=== PATIENT | male | born 1960 | race Caucasian/White ===

== ENCOUNTER 2020-03-01 10:30 | Outpatient (CLI) | payer OTHER, SELFPAY ==
--- NOTE | ~2020-03-01 | NM_ITS ---
EXAMINATION: NM hepatobiliary wo pharm DATE: 03/01/2020 13:58 INDICATION: Abdominal pain. COMPARISON: Ultrasound 03/13/2016 TECHNIQUE: 5.5 mCi Tc-99m mebrofenin (Choletec) was administered intravenously. Scintigraphic images of the abdomen were obtained for one hour. Then, 1.5 mcg sincalide (Kinevac) IV was administered, an d imaging was continued for 30 minutes. FINDINGS: There is normal clearance of radiotracer from the blood pool. There is homogeneous tracer u ptake by the liver. Activity progresses to the bowel and gallbladder. Gallbladder ejection fraction (GBEF) was 85%. Note that most patients with gallbladder dysfunction have GBEF < 35%, which overlaps with the broad normal range of 10-90%. IMPRESSION: 1. Normal hepatobiliary scintigraphy. Reviewed, dictated and finalized at location A.
== END 2020-03-01 10:31 | disposition home or self-care (01) ==
PROVIDERS: PCP Emergency Medicine; Visit Provider Emergency Medicine
DX: R10.9 Unspecified abdominal pain (principal)
CPT/HCPCS: 78226; A9537

== ENCOUNTER 2021-04-30 12:11 | Outpatient (CLI) | payer OTHER, SELFPAY ==
--- NOTE | ~2021-04-30 | MR_ITS ---
EXAMINATION: MR brain/brain stem wo/w con DATE: 04/30/2021 13:13 INDICATION: Muscle wasting and atrophy, not elsewhere classified. Bilateral leg weakness. TECHNIQUE: Magnetic resonance imaging (MRI) of the brain and brainstem was performed without and with 15 mL MultiHance intravenous contrast. Sequences included sagittal and axial T1-weighted FSE, axial diffusion-weighted FS EPI, axial T2*-weighted GRE, axial T2-weighted FLAIR Propeller, and axial T2-we ighted Propeller. Postcontrast sequences included axial and coronal T1-weighted FSE. Apparent diffusi on coefficient (ADC) maps were created. COMPARISON: None. FINDINGS: There are scattered areas of nonspecific increased T2-weighted signal intensity in the cere bral white matter and doug. There is no intracranial hemorrhage, acute infarction, or abnormal intrac ranial mass lesion. The ventricles are normal in size. The orbits are normal. There is mild mucosal t hickening in the paranasal sinuses. The mastoid air cells are normal. IMPRESSION: 1. Mild nonspecific cerebral white matter disease and pontine disease, which likely represents chroni c small vessel ischemic disease. Reviewed, dictated and finalized at location A. IMPRESSION: 1. Mild nonspecific cerebral white matter disease and pontine disease, which demi reyna represents chronic small vessel ischemic disease.
[2021-04-30 12:48] LABS: Estimated Glomerular Filt Rate > 60
== END 2021-04-30 12:12 ==
PROVIDERS: PCP Emergency Medicine; Visit Provider Emergency Medicine
DX: R90.82 White matter disease, unspecified (principal); M62.50 Muscle wasting and atrophy, not elsewhere classified, unspecified site; G93.89 Other specified disorders of brain
CPT/HCPCS: 70553; A9577

== ENCOUNTER → 2021-10-20 10:06 | Outpatient (CLI) | payer OTHER, SELFPAY ==
--- NOTE | ~2021-10-20 | MR_ITS ---
EXAMINATION: MR cervical spine wo con DATE: 10/20/2021 11:06 INDICATION: Gait abnormality. Left arm weakness. TECHNIQUE: Magnetic resonance imaging (MRI) of the cervical spine was performed without intravenous c ontrast. Sequences included sagittal T2-weighted FSE, sagittal STIR FSE, sagittal T1-weighted FSE, ax ial MERGE, and axial T2-weighted FSE. COMPARISON: None FINDINGS: Bone alignment is normal. Vertebral body heights are normal. There is mildly decreased disc height at C4-C5 and C5-C6. The spinal cord signal intensity is normal. The following disc levels are specifically discussed: C2-C3: The disc does not extend beyond the endplate margin. There is no uncovertebral joint osteoarth ritis. There is mild bilateral facet joint osteoarthritis. There is no neural foraminal stenosis. The re is no central canal stenosis. C3-C4: The disc is bulging. There is moderate bilateral uncovertebral joint osteoarthritis. There is severe right and moderate left facet joint osteoarthritis. There is moderate right and mild left neur al foraminal stenosis. There is mild central canal stenosis. C4-C5: The disc is bulging. There is moderate right and severe left uncovertebral joint osteoarthriti s. There is severe bilateral facet joint osteoarthritis. There is moderate bilateral neural foraminal stenosis. There is mild central canal stenosis. C5-C6: The disc is bulging. There is severe right and moderate left uncovertebral joint osteoarthriti s. There is severe bilateral facet joint osteoarthritis. There is mild bilateral neural foraminal leobardo nosis. There is mild central canal stenosis. C6-C7: The disc is bulging. There is mild bilateral uncovertebral joint osteoarthritis. There is greta re bilateral facet joint osteoarthritis. There is mild bilateral neural foraminal stenosis. There is mild central canal stenosis. C7-T1: The disc does not extend beyond the endplate margin. There is no uncovertebral joint osteoarth ritis. There is moderate bilateral facet joint osteoarthritis. There is mild left neural foraminal st enosis. There is no central canal stenosis. IMPRESSION: 1. Moderate cervical spondylosis. Reviewed, dictated and finalized at location A. IZATION MANAGEMENT UM NURSE
== END ==
DX: M62.50 Muscle wasting and atrophy, not elsewhere classified, unspecified site (principal); M47.892 Other spondylosis, cervical region
CPT/HCPCS: 72141

== ENCOUNTER → 2022-10-07 13:00 | Outpatient (CLI) | payer OTHER, SELFPAY ==
--- NOTE | ~2022-10-07 | MR_ITS ---
EXAMINATION: MR brain/brain stem wo/w con DATE: 10/07/2022 13:41 INDICATION: Parkinsonism. Unsteady gait. Positive ZOHAIB interbody. TECHNIQUE: Magnetic resonance imaging (MRI) of the brain and brainstem was performed without and with 15 mL MultiHance intravenous contrast. COMPARISON: Brain MRI 04/30/2021 FINDINGS: There are scattered areas of nonspecific increased T2-weighted signal intensity in the cere bral white matter and doug. There is no intracranial hemorrhage, acute infarction, or abnormal intrac ranial mass lesion. The ventricles are normal in size. There is mild mucosal thickening in the parana yevgeniy sinuses. The orbits are normal. The mastoid air cells are normal. IMPRESSION: 1. Mild nonspecific cerebral white matter disease and pontine disease, which likely represents chroni c small vessel ischemic disease, worsened from 04/30/2021. Reviewed, dictated and finalized at location A. RACTING EXECUTIVE IMPRESSION: 1. Mild nonspecific cerebral white matter disease and pontine disease, which demi reyna represents chronic small vessel ischemic disease, worsened from 04/30/2021.
== END ==
PROVIDERS: PCP Emergency Medicine
DX: G98.8 Other disorders of nervous system (principal); C80.1 Malignant (primary) neoplasm, unspecified; R93.0 Abnormal findings on diagnostic imaging of skull and head, not elsewhere classified
CPT/HCPCS: 70553; A9577

== ENCOUNTER → 2022-10-14 13:48 | Outpatient (CLI) | payer OTHER, SELFPAY ==
--- NOTE | ~2022-10-14 | CT_ITS ---
Clinical Indication: Paraneoplastic neurologic disorder CT Scan of the Chest, Abdomen, and Pelvis with Contrast: Technique: Contiguous sections were acquired throughout the chest, abdomen, and pelvis after intraven ous administration of 100 cc of Omnipaque 350. Dose reduction technique was used on this scan by kay suh automated exposure control and iterative reconstruction technique. The dose-length product (DL P) was 880.90 mGy-cm. Findings: There is no evidence of any significant mediastinal, hilar or axillary lymphadenopathy. The mediastin al soft tissues and vascular structures appear normal. There is no evidence of pleural or pericardial effusion. There is a fissural nodule along the right major fissure (axial image 63). Lungs are otherwise clear. Probable 9 mm hemangioma in the inferior right hepatic lobe. The spleen, pancreas, gallbladder, adren als and kidneys are within normal limits. No evidence of aortic aneurysm. No lymphadenopathy. No bowel obstruction or bowel wall thickening. There is sigmoid diverticulosis. No abscess or free ai r. Urinary bladder is unremarkable. Prostate gland and seminal vesicles are unremarkable. Impression: No significant abnormalities seen. Reviewed, dictated and finalized at [facility]. RU[employer] SERVICES LIBRARIAN Impression: No significant abnormalities seen.
== END ==
PROVIDERS: PCP Emergency Medicine
DX: G98.8 Other disorders of nervous system (principal); C80.1 Malignant (primary) neoplasm, unspecified
CPT/HCPCS: 71260; 74177; Q9967

== ENCOUNTER 2023-06-24 07:51 | Outpatient (CLI) | payer OTHER, SELFPAY ==
--- NOTE | ~2023-06-24 | PE_ITS ---
EXAMINATION: PET skull to mid thigh DATE: 06/24/2023 09:57 INDICATION: Weight loss TECHNIQUE: Blood glucose level was 102 mg/dL. 9.332 mCi of 18-fluorodeoxyglucose (18-FDG) was adminis tered i.v. Low dose computed tomography (CT) images were acquired from the base of the brain to the p roximal thighs for attenuation correction and anatomic localization. Positron emission tomography (PE T) images were acquired in the same distribution beginning 59 minutes after injection. Images includi ng fused PET/CT images were reconstructed in axial, coronal, and sagittal planes. Automated exposure control technique was employed. The dose-length product was 676.62mGy-cm. COMPARISON: CT dated 10/14/2022 FINDINGS: Head/neck: There is symmetric increased activity in the oral cavity, temporalis muscles, laryngeal muscles and o cular muscles without CT correlate, likely physiologic. No pathologically enlarged cervical lymphaden opathy or suspicious foci of increased FDG uptake in the visualized head or neck. Atherosclerotic jarrell cification is at the bilateral carotid bulbs. Chest: No significant interval change in a 7 x 3 mm flat lenticular intrafissural lymph node along the right major fissure without evident FDG activity. No suspicious pulmonary nodules, pneumonia, pulmonary ed raciel or pleural effusion. Heart size is normal. Aortic valve calcific is. Thoracic aorta is normal in caliber. No pathologically enlarged or FDG avid thoracic lymphadenopathy. Abdomen/pelvis/proximal thighs: Physiologic renal accumulation and excretion of FDG activity in the kidneys, bladder and along portio ns of ureters. Normal degree and heterogenous pattern of increased uptake throughout the liver withou t radiologic correlate or dominant FDG avid lesion. The gallbladder, pancreas, spleen and bilateral a drenal glands are normal. Mild uptake scattered throughout the bowels without radiologic correlate, a lso likely physiologic. Normal appendix. There is increased FDG uptake with maximal SUV of 11.6 The tip of the greater trochanter deep to the insertion of the gluteus medius and minimus tendons and a second region of increased uptake with maximal severe 9.71 distally overlying the lateral margin o f the greater trochanter without definitive radiologic correlate likely related to diffuse medius/min imus bursitis and trochanteric bursitis respectively. No other abnormal foci of increased FDG uptake or pathologically enlarged lymphadenopathy in the abdomen, pelvis or proximal thighs. Musculoskeletal: There are mild scattered degenerative skeletal changes. No suspicious lytic, blastic or PSMA avid bon e lesions. IMPRESSION: 1. Regions of increased uptake without suspicious radiologic correlate along the right greater trocha nter with location typical for gluteus medius/minimus bursitis and trochanteric bursitis. 2. Otherwise unremarkable study with no other FDG avid lesions or pathologically enlarged lymphadenop athy suspicious for primary malignancy or metastatic disease. Reviewed, dictated and finalized at location A. IMPRESSION: 1. Regions of increased uptake without suspicious radiologic correlate along th e right greater trochanter with location typical for gluteus medius/minimus bur sitis and trochanteric bursitis. 2. Otherwise unremarkable study with no other FDG avid lesions or pathologicall y enlarged lymphadenopathy suspicious for primary malignancy or metastatic dise ase.
[2023-06-24 08:16] LABS: Glucose Point of Care 102 mg/dl (65-105)
== END 2023-06-24 07:52 | disposition home or self-care (01) ==
PROVIDERS: PCP Emergency Medicine
DX: R63.4 Abnormal weight loss (principal)
CPT/HCPCS: 78815; A9552

== ENCOUNTER 2025-04-25 08:45 | Outpatient (CLI) | payer OTHER, SELFPAY ==
--- OUTSIDE RECORDS SUMMARY | 2020-07-01 05:52 | XMS_ITS | Continuity of Care Document ---
Author Organization [facility] Address [address] [place] [address] Phone Care Team Providers Care Combat Control Name Role Phone Araceli Caro MD Unavailable Unavailable Allergies, Adverse Reactions, Alerts Substance Reaction Status Criticality penicillin G Skin Active No Information Medications Medication Instructions Dosage Effective Dates (start - stop) Status Comments Valium 5 mg tablet take 1 tablet (5MG) by oral route 2 times every day as needed for anxiety - Active needs appt paroxetine 40 mg tablet TAKE ONE DAILY - Active Advance Directives Directive Yes / No Effective Date File Name No Information Encounters Encounter Description Practice Location Reason(s) For Visit Diagnoses Date Provider Providers Copied on Encounter [facility], [address], [place], [place], [address] , tel: [phone] [facility] No Information 9-202 0 Caro Araceli. [address] [address], [place], [place], [address], [place]. tel:[phone] [facility], [address], [place], [place], [address] , tel: [phone] [facility] No Information 5-201 9 Caro Araceli. [address] [address], [place], [place], [address], [place]. tel:[phone] [facility], [address], [place], [place], [address] , tel: [phone] [facility] No Information 9 Vania Jacobsal. [address] [place] [address], [address] [address], [place], [place], [address], [place]. tel:[phone] [email or web address], [address], [place], [place], [address] , tel: [phone] [facility] rov (chief complaint) Recurrent major depressive disorder, remission status unspecifiedBody mass index (BMI) 22.0-22.9, adultAbnormal weight loss 9 Caro Araceli. [address] [place] [address], [address] [address], [place], [place], [address], [place]. tel:[phone] Referring Provider: Araceli Caro, [address] [place] [address], [place], [address] . tel:[phone] [facility], [address], [place], [place], [address] , tel: [phone] [facility] Recurrent major depressive disorder, remission status unspecifiedAnxie ty state, unspecifiedBody mass index (BMI) 25.0-25.9, adult 8 Vania Jacobsal. [address] [place] [address], [address] [address], [place], [place], [address], [place]. tel:[phone] Referring Provider: Araceli Caro, [facility] [address] [address], [place], [address] . tel:[phone] [email or web address], [address], [place], [place], [address] , tel:[phone] [facility] Diarrhea, unspecifiedAnxie ty disorder, unspecifiedMajor depressive disorder, single episode, unspecified Caro Araceli. [address] [place], [place] [address], [address] [address], [place], [place], [address], [place]. tel:[phone] Referring Provider: Araceli Caro, [facility] [address] [address], [place], [address] . tel:[phone] [facility], [address], [place], [place], [address] , [place] tel: [phone] [facility] Diarrhea due to malabsorptionDia rrhea, unspecified 6 Sheree Jatinder. [address] [facility] [address], [place], [place], [address], [place]. tel:[phone] [facility], [address], [place], [place], [address] , [place] tel: [phone] [facility] Diarrhea due to malabsorptionDia rrhea, unspecified 6 Sheree Jatinder. [address] [facility], [place], [place], [address], [place]. tel:[phone] Referring Provider: Araceli Caro, [address] [place] [address], [place], [address] . tel:[phone] [facility], [address], [place], [place], [address] , [place] tel: [phone] [facility] SteatorrheaEncou nter for general adult medical examination without abnormal findingsAnxiety disorder, unspecified 6 Vania Charles. [address] [place] [address], [place], [place], [address], [place]. tel:[phone] Referring Provider: Araceli Caro, [address] [place] [address], [place], [address] . tel:[phone] [facility], [address], [place], [place], [address] , [place] tel: [phone] [facility] Unspecified disorder of lipoid metabolismMajor depressive disorder, single episode, unspecifiedAnxie ty disorder, unspecified Jul- 5 Vania Charles. [address] [place] [address], [place], [place], [address], [place]. tel:[phone] Referring Provider: Araceli Caro, [address] [place] [address], [place], [address] . tel:[phone] [facility], [address], [place], [place], [address] , [place] tel: [phone] [facility] ROUTINE MEDICAL EXAM 5 Vania Charles. [address] [place] [address], [address] [address], [place], [place], [address], [place]. tel:[phone] Referring Provider: Araceli Caro, [address] [place] [address], [place], [address] . tel:[phone] [facility], [address], [place], [place], [address] , [place] tel: [phone] [facility] ANXIETY STATE NOSUnspecified disorder of lipoid metabolismDepres sive disorder, not elsewhere classified 4 Vania Charles. [address] [place] [address], [address] [address], [place], [place], [address], [place]. tel:[phone] Referring Provider: Araceli Caro, [address] [place] [address], [place], [address] . tel:[phone] [facility], [address], [place], [place], [address] , [place] tel: [phone] [facility] No Information 3 Vania Charles. [address] [place] [address], [address] [address], [place], [address], [place]. tel:[phone] [facility], [address], [place], [place], [address] , [place] tel:[phone] [facility] Routine general medical examination at a health care facilityRoutine general medical examination at a health care facility 3 Vania Charles. [address] [place] [address], [address] [address], [place], [address], [place]. tel:[phone] Referring Provider: Araceli Caro, [address] [place] [address], [place], [address] . tel:[phone] [facility], [address], [place], [place], [address] , [place] tel:[phone] [facility] Routine general medical examination at a health care facilityUnspecif ied disorder of lipoid metabolismRoutin e general medical examination at a health care facility 2 Vania Charles. [address] [place] [address], [address] [address], [place], [place], [address], [place]. tel:[phone] Referring Provider: Araceli Caro, [address] [place] [address], [place], [address] . tel:[phone] [facility], [address], [place], [place], [address] , [place] tel: [phone] [facility] Depressive disorder, not elsewhere classifiedUnspec ified disorder of lipoid metabolism 1 Vania Charles. [address] [place] [address], [address] [address], [place], [address], [place]. tel:[phone] Referring Provider: Araceli Caro, [address] [place] [address], [place], [address] . tel:[phone] [facility], [address], [place], [place], [address] , [place] tel: [phone] [facility] B-COMPLEX DEFIC NECVITAMIN D DEFICIENCY NOS 0 Conversion [facility]. [address] [facility], [place], [address], [place]. [facility], [address], [place], [place], [address] , [place] tel: [phone] [facility] ROUTINE MEDICAL EXAM 0 9 Vania Charles. [address] [place] [address], [address] [address], [place], [place], [address], [place]. tel:[phone] [facility], [address], [place], [place], [address] , [place] tel: [phone] [facility] FAM HX-ISCHEM HEART DIS 0200 9 Dayton Jesus. [address] [place], [place], [address], [place]. tel:[phone] [facility], [address], [place], [place], [address] , [place] tel: [phone] [facility] CELLULITIS OF HANDVACCINATION FOR DTP-DTAP 0 2-200 9 Conversion Doctor. [address] [place], [address], [place]. [facility], [address], [place], [place], [address] , [place] tel: [phone] [facility] PURE HYPERCHOLESTEROL EM 8 Dayton Jesus. [address] [place], [place], [address], [place]. tel:[phone] [facility], [address], [place], [place], [address] , [place] tel: [phone] [facility] ACUTE TONSILLITISDEPRE SSIVE DISORDER NEC 4 8 Conversion Doctor. [address] [place], [address], [place]. [facility], [address], [place], [place], [address] , [place] tel: [phone] [facility] Medicine CELLULITIS OF LEG 0 5-200 7 Conversion Doctor. [address] [place], [address], [place]. [facility], [address], [place], [place], [address] , [place] tel: [phone] [facility] ANXIETY STATE NOS 1-200 6 Conversion Doctor. [address] [place], [address], [place]. [facility], [address], [place], [place], [address] , [place] tel: [phone] [facility] IMPACTED CERUMEN 6-200 5 Conversion Doctor. [address] [place], [address], [place]. [facility], [address], [place], [place], [address] , [place] tel: [phone] [facility] LONG-TERM USE MEDS NEC 1-200 5 Conversion Doctor. [address] [place], [address], [place]. [facility], [address], [place], [place], [address] , tel: [phone] [facility] HERPES ZOSTER NOS 6200 4 Conversion Doctor. [facility] [place], [address], . [facility], [address], [place], [place], [address] , tel: [phone] [facility] No Information 4 Caro Araceli. [address], [place], [place], [address], [place]. tel:[phone] [facility], [address], [place], [place], [address] , tel: [phone] [facility] SCREEN-DIABETES MELLITUSESOPHAGE AL REFLUX 3 Dayton Jesus. [address] [place], [place], [address], . tel:[phone] [facility], [address], [place], [place], [address] , tel: [phone] [facility] OTHR MIGRNE WO NTRC MGRN 5200 2 Conversion Doctor. [facility] [place], [address], . [facility], [address], [place], [place], [address] , tel: [phone] [facility] MALAISE AND FATIGUE NEC 3-200 2 Conversion Doctor. [address] [place] [address], [address], . [facility], [address], [place], [place], [address] , tel: [phone] [facility] ABDMNAL PAIN RT UPR QUAD 4-200 0 Conversion Doctor. [facility] [place], [address], . Family History Family Member Type Diagnosis Age At Onset children Problem (finding) attention deficit hyper activity disorder Father Problem (finding) alcoholism Family h/o Problem (finding) ISCHEMIC HEART DISEASE( IHD) Father Problem (finding) coronary arterioscleros is grandparents Problem (finding) coronary arterioscleros is Mother Problem (finding) Hearing impairment Father Problem (finding) premature coronary hear t disease grandparents Problem (finding) alcoholism grandparents Problem (finding) Cancer Immunizations Vaccine Date Status Comments Fluzone Quad, preservative free, split virus, 0.5mL dosage administered Note: CV S ; Source: Other Provider Influenza, seasonal, injecta ble (3 yrs or older) administered Note: Invalid docume nted admin date was . ; Source: Public Agency 48578 - Tetanus_Diptheria_Pertussis_Tda p administered Source: Source Unspe cified Fluzone High-Dose, high dose , preservative free administered Source: Public Agenc y Payers Payer name Insurance type Covered alliance party ID Authoriza tijimmy(s) [facility] [id number] Social History Type Description Quantity Date Captured Comments Sex Male Smoking Status No Information Sexual Orientation Straight or heterosexual Gender Identity Male Chief Complaint And Reason For Visit No Information Reason For Referral Reason For Referral No Information Plan Of Treatment Date Type Action Status Goal Dietary management education , guidance, and counseling completed History Of Present Illness Encounter Date Complaint History Of Prese nt Illness rov the patient pres ents today with routine follow for his depressive disorder medication refills. However we spent most of the time talking about his weight loss. He is unexplained weight loss and is being evaluated what appears in a thorough manner by his percussion tuner. This includes CT scan of the abdomen, gallbladder studies, and gastric emptying time alone with blood test. I stated no conclusive diagnosis is been made. Furthermore the patient has no specific symptoms attributed to any other system. That is no chest pain shortness of breath cough diarrhea or specific pain syndrome or fevers. He has no joint pain swellings or rashes. There is psychosocial situational stresses with his daughter. He was able to run regularly until last summer. He does seem that some discomfort in his abdomen after eating food but no vomiting. Colonoscopy and EGD have been negative. He is not undergone a small capsule endoscopy. Functional Status Date Functional Assessmen t No Information Instructions Date Instruction Additional Infor mation we talked about all sorts of evaluation methodologies. With no specific symptomatology is hard to understand the next step however a CT scan it's repeatable maybe the next step. He has some reluctance due to the cost of medications/cost of frequent visits to the doctor's office and deductibles for as imaging test.I will obtain autoimmune's studies in some other routine blood tests also speak to his G.I. Dr. Dumont Related to Abnormal weight loss the patient appears to be stable no changes in mood and affect beyond what is expected to medications. I recommend to continue medications indefinitely. Related to Recurrent major depressive disorder, remission status unspecified Dietary management e ducation, guidance, and counseling Related to Body mass index (BMI) 22.0-22.9, adult Disease process Assessments Type Assessment Date No Information Patient Care Teams Name Effective Dates (start - stop) Status Members No Information
--- OUTSIDE RECORDS SUMMARY | 2025-03-23 05:36 | XMS_ITS | Continuity of Care Document ---
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 Role Phone Mian Perez MD Unavailable Unavailable Allergies, Adverse Reactions, Alerts Substance Reaction Status Criticality Penicillins Active No Information Medications Medication Instructions Dosage Effective Dates (start - stop) Status Comments duloxetine 60 mg capsule,delayed release take 1 capsule by oral route 2 times every day 60 MG - Active trazodone 150 mg tablet take 1 tablet by oral route every day at bedtime - Active Valium 5 mg tablet take 1 tablet by oral route 2 times every day as needed 5 MG - Active PRN for anxi ety, avoid driving or operate machines, Neurontin 300 mg capsule take 1 capsule by oral route 3 times every day 300 MG - Active Procedures Procedure Date OFFICE/OUTPATIENT VISIT, EST PREV VISIT, EST, 65 & OVER OFFICE/OUTPATIENT VISIT, EST OFFICE/OUTPATIENT VISIT, EST OFFICE/OUTPATIENT VISIT, EST OFFICE/OUTPATIENT VISIT, EST OFFICE/OUTPATIENT VISIT, EST OFFICE/OUTPATIENT VISIT, EST OFFICE/OUTPATIENT VISIT, EST PREV VISIT, EST, AGE 40-64 OFFICE/OUTPATIENT VISIT, EST OFFICE/OUTPATIENT VISIT, EST OFFICE/OUTPATIENT VISIT, EST OFFICE/OUTPATIENT VISIT, EST PREV VISIT, EST, AGE 40-64 OFFICE/OUTPATIENT VISIT, EST OFFICE/OUTPATIENT VISIT, EST OFFICE/OUTPATIENT VISIT, EST OFFICE/OUTPATIENT VISIT, EST OFFICE/OUTPATIENT VISIT, EST PREV VISIT, NEW, AGE 40-64 Advance Directives Directive Yes / No Effective Date File Name No Information Encounters Encounter Description Practice Location Reason(s) For Visit Diagnoses Date Provider Providers Copied on Encounter OFFICE/OUTPA TIENT VISIT, [facility], [address], [place], [place], [address], [place] tel:[phone] [facility] insomnia1 (chief complaint) anxiety1 (chief complaint) weight loss1 (chief complaint) cardiac murmur1 (chief complaint) hyponatrem ia1 (chief complaint) Abnormal weight lossOther insomniaGeneralized Anxiety DisorderAnemiaHypon atremiaHyperglycemi aCardiac murmur 5 Chris Pappas. [address], [place], [place], [address] , [place]. tel:[phone] Referring Provider: Mian Perez, [address], [place], [place], [address]. tel:[phone] PREV VISIT, EST, 65 & OVER [facility], [address], [place], [place], [address], [place] tel:[phone] [facility] physical (chief complaint) Encounter for general adult medical examination without abnormal findings 5 Chris Pappas. [address], [place], [place], [address] , [place]. tel:[phone] Referring Provider: Mian Perez, [address], [place], [place], [address]. tel:[phone] OFFICE/OUTPA TIENT VISIT, [facility], [address], [place], [place], [address], [place] tel:[phone] [facility] anxiety1 (chief complaint) insomnia1 (chief complaint) Generalized Anxiety DisorderPrimary insomniaFatigue 4 Chris Pappas. [address], [place], [place], [address] , [place]. tel:[phone] Referring Provider: [address], [place], [place], [address]. tel:[phone] OFFICE/OUTPA TIENT VISIT, [facility], [place], [facility], [address], [place], [place], [address], [place] tel:[phone] [facility] insomnia1 (chief complaint) anxiety1 (chief complaint) enceph (chief complaint) fatigue1 (chief complaint) Generalized Anxiety DisorderEncephalomy elitisAbnormal weight lossPrimary insomniaFatigue 4 Chris Pappas. [address], [place], [place], [address] , [place]. tel:[phone] Referring Provider: Austin Henao [address], [place], [place], [address]. tel:[phone] OFFICE/OUTPA TIENT VISIT, [facility] [place], [address], [place], [place], [address], [place] tel:[phone] [facility] insomnia1 (chief complaint) anxiety1 (chief complaint) weight loss1 (chief complaint) encephalo (chief complaint) Abnormal weight lossGeneralized Anxiety DisorderEncephalomy elitisPrimary insomnia 3 Chris Franklin [address], [place], [place], [address] , [place]. tel:[phone] Referring Provider: Austin Henao [address], [place], [place], [address]. tel:[phone] OFFICE/OUTPA TIENT VISIT, [facility] [place], [address], [place], [place], [address], [place] tel:[phone] [facility] anxiety1 (chief complaint) insomnia1 (chief complaint) PERM (chief complaint) weight loss1 (chief complaint) Generalized Anxiety DisorderPrimary insomniaAbnormal weight lossEncephalomyelit is Apr 3 Perez Mian. [address], [place], [place], [address] , [place]. tel:[phone] Referring Provider: Austin Henao [address], [place], [place], [address]. tel:[phone] OFFICE/OUTPA TIENT VISIT, [facility] [place], [address], [place], [place], [address], [place] tel:[phone] [facility] insomnia1 (chief complaint) anxiety1 (chief complaint) Primary insomniaGeneralized Anxiety Disorder 3 Chris Pappas. [address], [place], [place], [address] , [place]. tel:[phone] Referring Provider: Austin Henao [address], [place], [place], [address]. tel:[phone] OFFICE/OUTPA TIENT VISIT, [facility] [place], [address], [place], [place], [address], [place] tel:[phone] [facility] insomnia1 (chief complaint) anxiety1 (chief complaint) Primary insomniaGeneralized Anxiety Disorder 2 Chris Pappas. [address], [place], [place], [address] , [place]. tel:[phone] Referring Provider: Austin Henao [address], [place], [place], [address]. tel:[phone] OFFICE/OUTPA TIENT VISIT, [facility] [place], [address], [place], [place], [address], [place] tel:[phone] [facility] anxiety1 (chief complaint) Primary insomniaGeneralized Anxiety Disorder 2 Chris Pappas. [address], [place], [place], [address] , [place]. tel:[phone] Referring Provider: Austin Henao [address], [place], [place], [address]. tel:[phone] PREV VISIT, EST, AGE 40-64 [facility], [address], [place], [place], [address], tel:[phone] [facility] PHYSICAL (chief complaint) Encounter for general adult medical examination without abnormal findings 2 Chris Pappas. [address], [place], [place], [address] , [place]. tel:[phone] Referring Provider: Austin Henao [address], [place], [place], [address]. tel:[phone] OFFICE/OUTPA TIENT VISIT, [facility] [place], [address], [place], [place], [address], [place] tel:[phone] [facility] anxiety1 (chief complaint) pain (chief complaint) HLP (chief complaint) Generalized Anxiety DisorderHyperlipide miaNeuropathyHypona tremiaAbnormal brain scan 1 Chris Franklin [address], [place], [place], [address] , [place]. tel:[phone] Referring Provider: Austin Henao [address], [place], [place], [address]. tel:[phone] OFFICE/OUTPA TIENT VISIT, [facility] [place], [address], [place], [place], [address], [place] tel:[phone] [facility] muscle1 (chief complaint) anxiety1 (chief complaint) Muscle atrophyGeneralized Anxiety DisorderNeuropathy 1 Chris Franklin [address], [place], [place], [address] , [place]. tel:[phone] Referring Provider: Austin Henao [address], [place], [place], [address]. tel:[phone] OFFICE/OUTPA TIENT VISIT, [facility] [place], [address], [place], [place], [address], [place] tel:[phone] [facility] anxiety1 (chief complaint) pain (chief complaint) Generalized Anxiety DisorderMuscle atrophyAbdominal pain 1 Chris Franklin [address], [place], [place], [address] , [place]. tel:[phone] Referring Provider: Austin Henao [address], [place], [place], [address]. tel:[phone] OFFICE/OUTPA TIENT VISIT, [facility] [place], [address], [place], [place], [address], [place] tel:[phone] [facility] anxiety1 (chief complaint) pain1 (chief complaint) hyponatrem ia1 (chief complaint) Generalized Anxiety DisorderAbdominal painHyponatremiaHyp erlipidemia 1 Chris Pappas. [address], [place], [place], [address] , [place]. tel:[phone] Referring Provider: Austin Henao [address], [place], [place], [address]. tel:[phone] PREV VISIT, EST, AGE 40-64 [facility], [address], [place], [place], [address], [place] tel:[phone] [facility] PHysical (chief complaint) Encounter for general adult medical examination without abnormal findings 0 Chris Pappas. [address], [place], [place], [address] , [place]. tel:[phone] Referring Provider: Austin Henao [address], [place], [place], [address]. tel:[phone] OFFICE/OUTPA TIENT VISIT, EST [facility], [address], [place], [address], [place] tel:[phone] [facility] anxiety1 (chief complaint) abd pain1 (chief complaint) hyponatrem ia1 (chief complaint) Abdominal painGeneralized Anxiety DisorderHyponatremi a 0 Chris Pappas. [address], [place], [place], [address] , [place]. tel:[phone] Referring Provider: Austin Henao [address], [place], [place], [address]. tel:[phone] OFFICE/OUTPA TIENT VISIT, [facility] [place], [address], [place], [place], [address], [place] [phone] [facility] abd pain1 (chief complaint) urinary (chief complaint) anxiety1 (chief complaint) hyponatrem ia1 (chief complaint) Generalized Anxiety DisorderBPH w/ lower urinary tract symptomAbdominal painHyponatremia 0 Chris Pappas. [address], [place], [place], [address] , [place]. tel:[phone] Referring Provider: Austin Henao [address], [place], [place], [address]. tel:[phone] OFFICE/OUTPA TIENT VISIT, [facility] [place], [address], [place], [place], [address], [place] [phone] [facility] hyponatrem ia1 (chief complaint) anxiety1 (chief complaint) bladder1 (chief complaint) abd pain1 (chief complaint) HyponatremiaGeneral ized Anxiety DisorderBPH w/ lower urinary tract symptomAbdominal pain 0 Chris Pappas. [address], [place], [place], [address] , [place]. [phone] Referring Provider: Austin Henao [address], [place], [place], [address]. tel:[phone] OFFICE/OUTPA TIENT VISIT, [facility] [place], [address], [place], [place], [address], [place] [phone] [facility] anxiety1 (chief complaint) abd pain1 (chief complaint) hyponatrem ia1 (chief complaint) fainting1 (chief complaint) Abdominal painGeneralized Anxiety DisorderHyponatremi aDumping syndrome 0 Chris Pappas. [address], [place], [place], [address] , [place]. [phone] Referring Provider: Austin Henao [address], [place], [place], [address]. tel:[phone] OFFICE/OUTPA TIENT VISIT, EST [facility], [address], [place], [place], [address], [place] tel:[phone] [facility] hyponatrem ia1 (chief complaint) HLP (chief complaint) anxiety1 (chief complaint) abd pain1 (chief complaint) HyponatremiaHyperli pidemiaGeneralized Anxiety DisorderAbdominal pain 9 Chris Pappas. [address], [place], [place], [address] , . tel:[phone] PREV VISIT, NEW, AGE 40-64 [facility], [address], [place], [place], [address], [place] tel:[phone] [facility] Physical (chief complaint) Encntr for general adult medical exam w/o abnormal findings 9 Chris Pappas. [address], [facility] [address], [place], [place], [address] , . tel:[phone] Referring Provider: Mian Perez [address] [facility] [address], [place], [place], [address]. tel:[phone] Family History Family Member Type Diagnosis Age At Onset Mother Problem (finding) Alive and well Father Problem (finding) CHF (Cause Of ) 60 Sister Problem (finding) Alive and well Father Problem (finding) Coronary artery disease 42 Payers Payer name Insurance type Covered green party ID Authoriza tion(s) [facility] CI [id number] Social History Type Description Quantity Date Captured Comments Alcohol Use Details beer & wine 1 drink daily Caffeine Use Details Unknown Tobacco Use Status Current non-smoker Smoking Status Never smoker Sex Male Vital Signs Date / Time: Height Weight BMI Pulse Rate Blood Pressure Temperature Respiratory Rate Body Surface Area Head Circumference BMI percentile Pulse Ox Inhaled Ox 10:36 AM 72.00 in 146.40 lbs 19.8 6 kg/m eter (2) 78 /min 117/67 mm[Hg] 98.1 F 16 /min Chief Complaint And Reason For Visit From encounter dated '03/23/2025 10:36'. insomnia1 (chief complaint). Description: Pt has chronic insomnia Pt takes trazodone and he has to take 1.5 pills in order to work anxiety1 (chief complaint). Description: Pt has chronic anxiety and depression pt takes cymbalta and doing ok Pt denies any suicidal or homicidal thought Pt denies any crying spells weight loss1 (chief complaint). Description: Pt has been losing weight pt has poor appetite. Pt hasnot done EGd and colonoscopy yet cardiac murmur1 (chief complaint). Description: Pt has new onset of cardiac murmur Pt denies any chest pain or sob or edema hyponatremia1 (chief complaint). Description: Pt has chronic and stable hyponatremia Pt has mild high glucose and high b12 Plan Of Treatment Date Type Action Status Referral Ordered: DOPPLER ECHO EXAM, HEART ordered Referral Ordered: US CAROTID ordered Referral Ordered: MRI NECK SPINE W/O DYE ordered Referral Ordered: MRI BRAIN W/O & W/DYE ordered Referral Ordered: MOTOR NERVE CONDUCTION TEST ordered Referral Ordered: Dinh Daugherty -Allopathic & Osteopathic Physicians : Internal Medicine : Nephrology (related to Hyponatremia) ordered Referral Ordered: Curtis Naik -[facility]opathic Physicians : Urology (related to BPH w/ lower urinary tract symptom) ordered Referral Referred To: Curtis Naik [address] [facility]
[address] [place], [place], [phone] Ordered: Referrals: Allopathic & Osteopathic Physicians : Urology. Curtis Naik. Evaluate and treat ordered Referral Referred To: Dinh Daugherty Ordered: Referrals: Allopathic & Osteopathic Physicians : Internal Medicine : Nephrology. Dinh Daugherty. Evaluate and treat ordered Referral Ordered: NUC MED HIDA (HEPATOBILIARY) SCAN ordered Appointment Kyler Marinelli BOOKED History Of Present Illness Encounter Date Complaint History Of Prese nt Illness insomnia1 Pt has chronic i nsomnia Pt takes trazodone and he has to take 1.5 pills in order to work anxiety1 Pt has chronic a nxiety and depression pt takes cymbalta and doing ok Pt denies any suicidal or homicidal thought Pt denies any crying spells weight loss1 Pt has been losi ng weight pt has poor appetite. Pt has not done EGd and colonoscopy yet cardiac murmur1 Pt has new onset of cardiac murmur Pt denies any chest pain or sob or edema hyponatremia1 Pt has chronic a nd stable hyponatremia Pt has mild high glucose and high b12 physical Pt needs annual physical. 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 Pt is on cymbalta and trazone for anxiety and depression and insomnia Pt had negative EGD and colonoscopy in the past Pt denies any appetite loss. pt state that his whole body and his abdomen hurts with food, which is a result of above diagnosis. Pt denies any early satiety .loss of appetite. bowel change, etc insomnia1 Pt has chronic i nsomnia Pt doing ok with trazodone anxiety1 Pt has chronic a nxiety and depression Pt takes cymbalta and doing ok Pt denies any suicidal or homicidal thought. .his daughter recently after OD and he has been feeling very sad with crying spells. fatigue1 Pt has chronic f atigue, which is related to his progressive encephalitis. Pt has been taking caffeine pills to stay awake every day anxiety1 Pt has chronic a nxiety and depression Pt takes cymbalta and doing ok Pt denies any suicidal or homicidal thought Pt denies any crying spells insomnia1 Pt has chronic i nsomnia Pt takes trazodone qhs and doing ok. 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 his disease is progressively worse. 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 pt sees neurology. weight loss1 Pt has been losi ng weight. Pt states that it is due to poor pain control. Pt states that he has poor appetite due to chronic pain Pt is on neurontin and valium Pt states that his neurology will do PET CT to rule out malignancy soon. anxiety1 Pt has chronic a nxiety and depression Pt takes cymbalta and doing ok Pt denies any suicidal or homicidal thought .Pt denies any crying spells insomnia Pt has chronic i nsomnia Pt takes trazodone qhs and doing ok .Pt denies any side effects from trazodone . weight loss1 Pt has been losi ng weight progressively which he attributes to his chronic GI discomfort due to PERM. 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 insomnia Pt has chronic i nsomnia. Pt takes trazodone qhs and doing ok. anxiety1 Pt has chronic a nxiety and depression Pt takes cymbalta 60 mg BID and doing ok .Pt denies any suicidal or homicidal thought Pt denies any crying spells anxiety1 Pt has chronic a nxiety and depression Pt takes cymbalta 60 mg BID and is doing ok, Pt denies any suicidal or homicidal thought Pt denies any crying spells insomnia Pt has chronic i nsomnia. Pt takes trazodone 50 mg qhs but has not helped Pt wants to try higher dose Pt denies any snoring anxiety1 Pt has chronic a nxiety and depression. Pt takes cymbalta in the morning and he feels good with his mood all day but he feels very depressed and anxious in the morning only. Pt denies any suicidal or homicidal thought Pt denies any crying spells. insomnia1 Pt states that t razodone did help with insomnia but it caused some stomach upset and he also feels very anxious and depressed in the morning. anxiety1 Pt has chronic a nxiety and depression Pt has insomnia Pt denies any suicidal or homicidal thought pt denies any crying spells. Pt states that he has not noticed much improvement with cymbalta in terms of his mood. Pt thinks that insomnia makes the morning mood worse. PHYSICAL Pt needs annual physical. pt has chronic anxiety and depression. Pt takes paxil and valium Pt is getting valium from neurologist for treatment for ? stiff man syndrome. Pt c/o diffuse muscle stiffness and upper thigh and abdominal muscle weakness Pt has hard time getting out of bed or siting position due to bilateral thigh muscle weakness. Pt is seeing neuromuscular specialist and he had NCS with EMG and he will do spinal tap soon to check for ZOHAIB. Pt does not have any ALS, MS, etc. Pt states that he has crying spells in the morning but gets better. HLP Pt has history o f HLP anxiety1 Pt has chronic a nxiety and depression P takes paxil and valium and doing ok .Pt denies any suicidal or homicidal thought Pt denies any crying spells pain Pt has chronic r ight side abdominal pain, s/p extensive GI work up which were all negative. 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 He saw neurology who started him on neurontin which is helping his abd pain. Pt denies any low back pain or ay sciatica or any paresthesia of lower extremity Pt denies any loss of bladder or bowel control. he had MRi L spine done which showed mild DDD only. Pt also notices mild left upper and lower extremity muscle atrophy and loss of tone and some left side weakness for two years. pt denies any headache. Pt denies any vision change. Pt was referred to neuromuscular physician at [facility] by her neurologist but he could not get it until March of 2021. he notices left bicep muscle is especially getting atrophied.. Pt is concerned about neuromuscular disease. Pt also has chronic pelvic pain. Pt was evaluated and cleared by urology. pt also notices muscle atrophy around buttock area. he has pelvic floor muscle spasm and his neurologist gave him some baclofen which did not help. Pt also notices intermittent blurred vision as well. NCS showed neurogenic change and lack of recruitment of left bicep muscle. pt also has hyperreflexia both knee. Pt has diffuse muscle pain all over body pt denies any headache or tremor. Pt had benign MRi of brain. Pt did have ZOHAIB 65 ab positive on his recently lab study from neurology. His cervical MRi was denied by insurance and his neurologist does not want to order C spine MRi. he was referred to [facility] neurology and he has coleman next week. muscle1 Pt has chronic r ight side abdominal pain, s/p extensive GI work up which were all negative. 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 He saw neurology who started him on neurontin which is helping his abd pain. Pt denies any low back pain or ay sciatica or any paresthesia of lower extremity Pt denies any loss of bladder or bowel control. he had MRi L spine done which showed mild DDD only. Pt also notices mild left upper and lower extremity muscle atrophy and loss of tone and some left side weakness for two years. pt denies any headache. Pt denies any vision change. Pt was referred to neuromuscular physician at [facility] by her neurologist but he could not get it until March of 2021. he notices left bicep muscle is especially getting atrophied.. Pt is concerned about neuromuscular disease. Pt also has chronic pelvic pain. Pt was evaluated and cleared by urology. pt also notices muscle atrophy around buttock area. he has pelvic floor muscle spasm and his neurologist gave him some baclofen which did not help. Pt also notices intermittent blurred vision as well. NCS showed neurogenic change and lack of recruitment of left bicep muscle. pt also has hyperreflexia both knee. Pt has diffuse muscle pain all over body pt denies any headache or tremor anxiety1 Pt has chronic a nxiety and depression Pt takes paxil and valium ad doing ok Pt denies any suicidal or homicidal thought .Pt denies any crying spells anxiety1 Pt has chronic a nxiety and depression Pt takes paxil and valium ad doing ok Pt denies any suicidal or homicidal thought .Pt denies any crying spells pain Pt has chronic r ight side abdominal pain, s/p extensive GI work up which were all negative. 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 He saw neurology who started him on neurontin which is helping his abd pain. Pt denies any low back pain or ay sciatica or any paresthesia of lower extremity Pt denies any loss of bladder or bowel control. he had MRi L spine done which showed mild DDD only. Pt also notices mild left upper and lower extremity muscle atrophy and loss of tone and some left side weakness for two years. pt denies any headache. Pt denies any vision change. Pt was referred to neuromuscular physician at [facility] by her neurologist but he could not get it until March of 2021. he notices left bicep muscle is especially getting atrophied.. Pt is concerned about neuromuscular disease. Pt also has chronic pelvic pain. Pt was evaluated and cleared by urology. pt also notices muscle atrophy around buttock area. he has pelvic floor muscle spasm and his neurologist gave him some baclofen which did not help hyponatremia1 Pt has chronic m ild hyponatremia. Pt saw nephrology and was told it is benign and probably due to either paxil or valium Pt denies any headache or mental status change pain1 Pt has chronic r ight side abdominal pain, s/p extensive GI work up which were all negative. 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 He saw neurology who started him on neurontin which is helping his abd pain. Pt denies any low back pain or ay sciatica or any paresthesia of lower extremity Pt denies any loss of bladder or bowel control. He also will do MRI of L spine by neurology as well. anxiety1 Pt has chronic a nxiety and depression. Pt takes paxil and valium and doing ok. Pt denies any suicidal or homicidal thought. Pt denies any crying spells. PHysical Patient needs an nual physical. Patient has current anxiety and depression. Patient takes Paxil and Valium and doing okay. Patient needs refill. Patient has chronic mid epigastric right upper quadrant pain. Patient had negative endoscopy and ultrasound and HIDA scan. Patient denies any acute pain. Patient was referred to urology recently who performed a cystoscopy which showed over work bladder per patient. Patient was told that his abdominal pain may be due to referred pain from either bladder or vas deferens. Patient was referred to neurology. Patient denies any urinary symptoms. Patient was started on a short. Of Mybetriq which did not work. Patient stopped taking it.Pt denies any acute abdominal pain. anxiety1 Pt has chronic a nxiety and depression Pt takes valium and paxil Pt denies any suicidal or homicidal thought Pt denies any crying spells. abd pain1 Pt has chronic a bd pain Pt had negative HIDA scan. Pt has thickened bladder wall. pt did see urology and he had PSA done ,he will get cysto soon by urology. Pt thinks that his pain maybe from IC. hyponatremia1 Pt has hyponatre ej Pt denies any headache or mental status change. He still has not heard from nephrology yet abd pain1 Pt has chronic p ostprandial right side abdominal pain and some nausea for years. He states that he does not see any particular type of food which makes the symptoms worse Pt denies any vomiting Pt denies any constipation Pt has intermittent diarrhea without blood Pt denies any weight loss urinary Pt c/o chronic u rinary urgency and frequency and sometimes he feels that he does not empty his bladder completely and he also has some difficulty initiating urination. he typically wakes up 2-3 times at night to urinate. Pt notices mild slow stream CT is essentially benign with urinary bladder mildly thick walled, which is unchanged from before anxiety1 Pt has chronic a nxiety and depression Pt takes paxil and valium and doing ok. Pt denies any suicidal or homicidal thought ,Pt denies any crying spells. hyponatremia1 Pt has chronic h yponatremia Pt denies any headache or vision change or mental status change. pt has not heard from nephology bladder1 Pt had CT done w [facility] showed bladder wall thickening pt also notices some urinary urgency and some difficulty with urination Pt wakes up 2-3 per night. abd pain1 Pt did see his G I and had another CT done which was normal per pt. GI told him no need for HIDA scan anxiety1 Pt has chronic a nxiety and depression and he takes paxil and valium and doing ok ,Pt denies any suicidal or homicidal thought hyponatremia1 Pt has hyponatre ej. Pt denies any mental status change or headache or confusion abd pain1 Pt c/o chronic r ight abdominal pain post food with nausea without vomiting Pt has loose stool pt denies any blood in stool Pt had negative CT scan, ultrasound, HIDA scan, gastric empty study Pt failed xifitan, nortriptyline for IBS but did not work, Pt had negative EGD and colonoscopy also. Pt denies any acute abdominal pain anxiety1 Pt has chronic a nxiety and depression Pt doing ok with paxil and valium. Pt denies any suicidal or homicidal thought Pt denies any crying spells hyponatremia1 Pt has low sodiu m, Pt denies any headache fainting1 Pt states that h e feels weak sometimes if he eats a full meal sometimes pt feels slightly lightheadedness. Pt denies any palpitation or sweaty abd pain1 Pt has chronic r ight upper quadrant abdominal pain and discomfit post food for several years Pt had negative GI work up so far ,Pt denies any acute pain. Pt denies any blood in stool Pt denies any worsening pain . Pt denies any weight loss. hyponatremia1 Pt has mild hypo natremia. Pt denies any mental status change or headache. anxiety1 Pt has chronic a nxiety and depression ,Pt takes paxil and valium and doing ok, PT denies any suicidal or homicidal thought Pt denies any crying spells. HLP Pt has mild HLP. PT is not on any diet Physical Pt needs annual physical. pt has chronic anxiety and depression. Pt takes paxil and valium and doing ok Pt denies any suicidal or homicidal thought. Pt c/o right side and right upper quadrant abdominal pain and fullness feeling for 1-2 years. Pt had negative ultrasound and also HIDA scan. Pt denies any constipation or diarrhea. Pt occasionally has loose stool. Pt notices nausea post food Pt denies any vomiting. Pt lost close to 70 pounds during last two years but has been stable for the past 9 months Pt was tried on remeron but did not help. Pt had work up done by GI including gastric empty study, CT abdomen and pelvis with contrast, HIDA scan which were all negative within last 1-2 years. Pt denies any GERD. Pt denies any early satiety, appetite loss. Pt is under a lot of stress. his daughter is disabled. Pt states that usually drinks some alcohol helps with his GI symptoms Instructions Date Instruction Additional Infor mation Increase activity. Related to En cntr for general adult medical exam w/o abnormal findings Assessments Type Assessment Date assessment Abnormal weight loss assessment Other insomnia assessment Generalized Anxiety Disorder Mar assessment Anemia assessment Hyponatremia assessment Hyperglycemia assessment Cardiac murmur Mental Status Date Cognitive Assessment Orientation - [place] ed to time, place, person, situation.
--- NOTE | 2025-04-25 | ECHO_ITS ---
Patient Info Name: Kyler Marinelli Age: 64 years : 1960 Gender: Male Ht: 72 in Wt: 146 lbs BSA: 1.82 m2 HR: 70 bpm BP: 138 / 91 mmHg Technical Quality: Fair, TDS due to thin body habitus Exam Date: 04/25/2025 9:08 AM Patient Status: O Admit Date: 04/25/2025 Exam Type: CA echo doppler color flow Complete two-dimensional, color flow and Doppler transthoracic echocardiogram is performed. Clinical Trial Data Manager: Joy Balderas Attending Provider: Mian Perez Summary 1. Complete two-dimensional, color flow and Doppler transthoracic echocardiogram is performed. 2. Left ventricular chamber dimension is normal. 3. Left ventricular systolic function is normal, estimated at 60-65. 4. The left ventricular diastolic function is normal. 5. E/e' 6 is not elevated. 6. There is moderate aortic valve sclerosis. 7. There is mild aortic valve stenosis with a peak velocity of 205 cm/s, mean gradient of 10 mmHg, and aortic valve area of 1.8 cm2. 8. There is mild aortic valve regurgitation. 9. There is trace tricuspid valve regurgitation. 10. No pulmonary hypertension, estimated pulmonary arterial systolic pressure is 24 mmHg. Left Ventricle E/e' 6 is not elevated. Left ventricular chamber dimension is normal. Left ventricular systolic function is normal, estimated at 60-65. The left ventricular diastolic function is normal. Right Ventricle Right ventricular chamber dimension is normal. Right ventricular systolic function is normal and with normal TAPSE 2.0 cm. Left Atria Left atrial chamber dimension is normal. Right Atria Right atrial chamber dimension is normal. Aortic Valve The aortic valve is probable trileaflet. There is moderate aortic valve sclerosis. There is mild aortic valve stenosis with a peak velocity of 205 cm/s, mean gradient of 10 mmHg, and aortic valve area of 1.8 cm2. There is mild aortic valve regurgitation. Pulmonic Valve There is no pulmonic regurgitation. Mitral Valve There is no mitral valve stenosis. There is no mitral valve regurgitation. Tricuspid Valve There is trace tricuspid valve regurgitation. No pulmonary hypertension, estimated pulmonary arterial systolic pressure is 24 mmHg. Pericardium/Pleural There is no pericardial effusion. Inferior Vena Cava Normal inferior vena cava with >50% collapse upon inspiration consistent with normal right atrial pressure, 5 mmHg. Aorta The aortic root size at the sinus of Valsalva is normal. Left Ventricular Outflow Tract Name Value Normal LVOT 2D LVOT Diameter 2.0 cm LVOT Doppler LVOT Peak Velocity 114 cm/s LVOT Peak Gradient 5 mmHg LVOT Mean Gradient 4 mmHg LVOT VTI 23 cm LVOT VTI/AV VTI Ratio 0.5 LVOT Stroke Volume 76 ml LVOT CO 18.0 l/min LVOT CI 9.9 l/min/m2 Mitral Valve Name Value Normal MV Diastolic Function MV E Peak Velocity 74 cm/s MV A Peak Velocity 59 cm/s MV E/A 1.3 MV Decel Time (PW) 244 ms MV Annular TDI MV E/e' (Septal) 7.9 MV E/e' (Lateral) 5.2 MV E/e' (Average) 6.6 Tricuspid Valve Name Value Normal TV Regurgitation Doppler TR Peak Velocity 220 cm/s TR Peak Gradient 19 mmHg Estimated PAP/RSVP RA Pressure 5 mmHg <=5 PA Systolic Pressure 24 mmHg <36 RV Systolic Pressure 24 mmHg <36 TV Annular TDI TV Lateral Paty s' Velocity 14.4 cm/s >=9.5 Aorta Name Value Normal Ascending Aorta Ao Root Diameter (MM) 3.2 cm Ao Root Diam Index (MM) 1.8 cm/m2 Aortic Valve Name Value Normal AV Doppler AV Peak Velocity 205 cm/s AV Peak Gradient 17 mmHg AV Mean Gradient 10 mmHg AV VTI 43 cm AV Area (Cont Eq VTI) 1.8 cm2 >=3.0 AV Area (Cont Eq Pablo) 1.8 cm2 AV DI (Pablo) 0.56 AV Regurgitation 2D LVOT Area 3.3 cm2 Ventricles Name Value Normal LV Dimensions 2D/MM IVS Diastolic Thickness (2D) 1.1 cm 0.6-1.0 LVID Diastole (2D) 4.1 cm 4.2-5.8 LVIW Diastolic Thickness (2D) 0.8 cm 0.6-1.0 LVID Systole (2D) 2.9 cm 2.5-4.0 LVOT Diameter 2.0 cm LV Mass (2D Cubed) 122.52 g 88.00-224.00 LV Mass Index (2D Cubed) 67 g/m2 49-115 Relative Wall Thickness (2D) 0.40 <=0.42 LV Fractional Shortening/Ejection Fraction 2D/MM LV Fractional Shortening (2D) 28 % 25-43 LV EF (2D Teichholz) 55 % RV Dimensions 2D/MM RVID Diastole (2D) 3.9 cm 2.1-3.5 Atria Name Value Normal LA Dimensions LA Volume (4C A-L) 35 ml LA Volume (BP A-L) 38 ml RA Dimensions RA Systolic Major Blackwell Length (4C) 4.9 cm 2.1-2.7 RA Area (4C) 18.9 cm2 <=18.0 Report Signatures
--- OUTSIDE RECORDS SUMMARY | 2025-04-25 09:09 | XMS_ITS | Clinical Summary ---
Author Organization [facility] Address [address] [place] [address] Care Team Providers Care Board Of Directors Name Role Phone Mian Perez MD Primary Care Provider [phone] Source Comments [facility],non-owned Affiliates and Associated Physician Practices is amultiple site organization consisting of ambulatory clinics and hospital sitesin [place], [place], [place] and [place]. This disclosure is being madepursuant to the Care Everywhere program and may not contain all information available regarding this patient. Last updated 18.[facility] Allergies Active Allergy Reactions Criticality Noted Date Comments Penicillins Unknown 09/16/2016 Medications * This document contains information received from the source organization and may not represent a complete record from that organization. * Be aware that medications may not be up to date on this document. Alwaysverify current medications with the patient. PARoxetine (PAXIL) 40 MG tablet Take 40 mg by mouth once daily 04/13/2020 Active diazePAM (VALIUM) 5 MG tablet Take 1 tablet by mouth at bedtime 12/23/2017 Active methocarbamol (ROBAXIN) 500 MG tablet Take 500 mg by mouth 2 times daily as needed 04/04/2021 Active gabapentin enacarbil ER (HORIZANT) 300 MG tabletIndicatio ns:Neuropathy Take 1 (one) tablet by mouth 2 times daily with morning and evening meal 180 tablet 3 10/06/2021 Active Active Problems No known active problems Immunizations Immunization Administration Dates Next Due iNFLUENZA VACCINE, RECOM-MÁRQUEZ, QUADR. (FLUBLOCK QUADRIVALENT; 18Y+) (RIV4) 06/28/2020 Social History Tobacco Use Types Packs/Day Years Used Date Smoking Tobacco: Never Smokeless Tobacco: Never Alcohol Use Standard Drinks/Week Comments Not Currently 0 (1 standard drink = 0.6 oz pur e alcohol) AUDIT-C Answer Date Recorded Q1: How often do you have a drink containing alc ohol? Never 04/26/2020 Average Number of Drinks Not on file 020 Frequency of Binge Drinking Not on file 11/2019 Sex and Gender Information Value Date Recorded Sex Assigned at Not on file Legal Sex Male 5:08 AM CDT Gender Identity Not on file Sexual Orientation Not on file Last Filed Vital Signs Vital Sign Reading Time Taken Comments Blood Pressure 141/100 04/22/2021 2:06 PM CDT Pulse 96 04/22/2021 2:06 PM CDT Temperature 36.2 C (97.1 F) 04/22/2021 2:06 PM CDT Respiratory Rate 16 05/31/2020 1:03 PM CDT Oxygen Saturation 97% 04/22/2021 2:06 PM CDT Inhaled Oxygen Concentration - - Weight 84.1 kg (185 lb 6.4 oz) 04/22/2021 2:06 P M CDT Height 182.9 cm (6') 04/22/2021 2:06 PM CDT Body Mass Index 25.14 04/22/2021 2:06 PM CDT Plan of Treatment Health Maintenance Due Date Last Done Comments COLOGUARD (AGES 45-75) - COL ON CA SCREENING 1960 COLON MONITORING 1960 COLONOSCOPY - COLON CA SCREENING 1960 CT COLONOGRAPHY - COLON CA SCREENING 1960 Colorectal Cancer Screening 1960 FIT - COLON CA SCREENING 1959 FLEX SIG - COLON CA SCREENING 1959 LIPID TESTING 1959 HIV SCREENING 1974 HEPATITIS C SCREENING 09/19/1977 DTAP/TDAP/TD VACCINES (1 - Tdap) 1978 PNEUMOCOCCAL VACCINE 50+ (1 of 1 - PCV) 2009 ZOSTER VACCINE (1 of 2) 2009 SCREENING FOR DIABETES 04/22/2021 DEPRESSION SCREENING 08/23/2024 COVID-19 VACCINE (1 - 2023-2 5 season) 2025 INFLUENZA VACCINE (#1) 2025 06/28/2020 Respiratory Syncytial Virus (RSV) Vaccine Pt: or over 60 yrs (1 - 1-dose 75+ series) 2034 HEPATITIS B VACCINE Aged Out No longe r eligible based on patient's age to complete this topic HIB VACCINE Aged Out No longer eligi ble based on patient's age to complete this topic HPV VACCINE Aged Out No longer eligi ble based on patient's age to complete this topic MENINGOCOCCAL (Group B) VACC INE SHARED DECISION-MAKING Aged Out No longer eligibl e based on patient's age to complete this topic MENINGOCOCCAL GROUPS A/C/Y/W VACCINE Aged Out No longer eligible b ased on patient's age to complete this topic Insurance Member Subscriber Plan / Payer (Ef fective 2019-Present) Name:Kyler Marinelli Relation to Subscriber:Self Name:KYLER MARINELLI Payer ID:[id number] (NAIC) Type:HMO Address: [place] [phone] Member Subscriber Plan / Payer (Ef fective 2019-Present) Name:Kyler Marinelli Relation to Subscriber:Self Name:Kyler Marinelli Payer ID:[id number] (NAIC) Type:HMO Address: [place] [phone] Care Teams Board Of Directors Relationship Specialty Start Date End Date Mian Perez MD [facility] - General 02/20/20
--- OUTSIDE RECORDS SUMMARY | 2025-04-25 09:09 | XMS_ITS | Clinical Summary ---
Author Organization [facility] Address [address] [place] [address] Care Team Providers Care Mergers And Acquisitions Attorney Name Role Phone Mian Perez MD Primary Care Provider [phone] Allergies Active Allergy Reactions Criticality Noted Date Comments Penicillins Unknown 09/16/2016 Medications * This document contains information received from the source organization and may not represent a complete record from that organization. DULoxetine DR (CYMBALTA) 60 mg capsule Take 1 capsule (60 mg total) by mouth 2 (two) times a day 08/06/2022 Active traZODone (DESYREL) 100 mg tablet TAKE 1 TABLET BY MOUTH EVERY NIGHT AT BEDTIME AFTER A MEAL 09/04/2022 Active gabapentin enacarbil (Horizant) 300 mg tablet extended releaseIndicati ons:Small fiber neuropathy Take 900 mg by mouth 2 (two) times a day 540 tablet 3 09/05/2024 Active diazePAM (VALIUM) 5 mg tabletIndicatio ns:Muscle spasms of both lower extremities,Par aneoplastic neurologic disorder (HCC) Take 1 tablet (5 mg total) by mouth every 6 (six) hours as needed for muscle spasms 120 tablet 3 01/21/2025 Active tiZANidine (ZANAFLEX) 2 mg tabletIndicatio ns:Muscle spasms of both lower extremities,Par aneoplastic neurologic disorder (HCC) Take 1 tablet (2 mg total) by mouth every 6 (six) hours as needed for muscle spasms 120 tablet 3 02/15/2025 Active Active Problems Problem Noted Date Diagnosed Date Small fiber neuropathy 10/19/2022 Other chronic pain 09/01/2022 Gait abnormality 10/02/2021 Assessment & Plan (03/22/2022 11:45 AM CDT): Mr. Kyler Marinelli is a 61 y.o. male, who presents for follow-up for gait dysfunction. He is worse since the last visit. He has more difficulty with the mobility, with problems walking in inclines and get stairs. He remains with pain and tends to be in a more reclined position to minimize the abdominal pain. I reviewed his exam and he as weakness in the hip flexors and hip abduction and adduction. Again, there was no ataxia no the exam. His case was reviewed in the video rounds within our section and the gait pattern was compatible with proximal weakness. The group also agreed there was no ataxia. We discussed the findings in the exam today. The etiology of his gait dysfunction is unclear at this point, but a peripheral cause of the weakness should be considered. He has an upcoming appointment with Dr. Tovar and they should review together whether additional testing should be done, including a spinal tap. Plan: - No additional work-up per movement disorders clinic. Potential medication side effects were discussed during the encounter. Assessment & Plan (10/10/2021 10:35 AM BUTADIENE CONVERTER HELPER): Mr. Kyler Marinelli is a 61 y.o. male, who presents for evaluation of gait changes. He developed balance problems in 2020. He feels his legs are rotate outwards and he has trouble walking in uneven terrains and small inclines. He also feels tired and has trouble getting out of chairs. There has been no change in the dexterity. He was noted to have atrophy of the left biceps. In addition, he urinary urgency and incontinence and constipation at times. He has a history of a chronic pelvic pain and it etiology remains unclear. There is no family history of similar neurological problems. On examination, there is bilateral hyperreflexia in upper and lower extremities, with increase in tone (suspected mild spasticity, but could not exclude some paratonia component), atrophy in left biceps, decreased light touch sensation in the arms, and abnormal gait with external leg rotation, with difficulty with tandem gait. There was no dystonic posture of the legs, signs of ataxia or signs of parkinsonism. He also did not have any pain to muscle palpation or hyperlordosis. History and examination are compatible with gait abnormality. Suspected cause of gait abnormality is cervical myelopathy. the exam findings are not compatible with ataxia or stiff person syndrome. He needs a MRI of the cervical spine. He will bring his brain MRI to the next visit to evaluate the cerebellum, but the suspicion is low. Finally, he is having problems with insurance coverage for Horizant for pain control and asked to switch to gabapentin as he does not follow anymore with his prescribing neurologist. Plan: - MRI cervical spine without contrast. - Bring the MRI brain in the next visit. - Change from Horizant to gabapentin 300 mg three times a day as his insurance is not covering it anymore. Potential medication side effects were discussed during the encounter. Encounters * This document contains information received from the source organization and may not represent a complete record from that organization. Date Type Department Care Team Description 04/09/2025 Telephone [facility] Medicine Scheduling [address] [place] [address] Hue Tovar MD Scheduling Appointments 02/26/2025 Telephone [facility] Medicine Neuro Muscle [address] [facility] Advanced Medicine 6th [place] [address] [place] [address] for Prev [facility]etics' [id number], Neuro NavigATTR Neuropathy P 01/24/2025 12:09 PM CDT - 01/24/2025 11:59 PM CDT Hospital [facility]counter [facility] [address] [place] [address] General medical exam Discharge Disposition: Discharge to home or self care from Last 3 Months Immunizations Immunization Administration Dates Next Due Heplisav-b (Hepatitis B) 03/07/2025,02/05/2025 Medical History Medical History Date Comments Depression Anxiety Diverticulosis of colon Right inguinal hernia Shingles Right flank dist ribution in 2004 Family History Medical History Relation Name Comments Dementia Mother Ovarian cancer Other Ovarian cance r - Relation: Aunt (Added by TW Conv) Irritable bowel syndrome Sister Ataxia Neg Hx Relation Name Status Comments Mother Other Sister Social History Tobacco Use Types Packs/Day Years Used Date Smoking Tobacco: Former Smokeless Tobacco: Never Tobacco Cessation:Counseling Given: Not Answered OASIS D0700: Social Isolation Answer Da te Recorded Frequency of experiencing loneliness or isolatio n Never 09/08/2023 Hunger Vital Sign Answer Date Recorded Within the past 12 months, y ou worried that your food would run out before you got the money to buy more. Never true 03/26/20 23 Within the past 12 months, t he food you bought just didn't last and you didn't have money to get more. Never true 03/26/2023 Personal Safety Answer Date Recorded Have you ever been in or are you currently in a harmful physical or emotional relationship or is someone making you feel afraid or unsafe? 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 Not on file Obstetrics History Last Filed Vital Signs Vital Sign Reading Time Taken Comments Blood Pressure 141/81 07/06/2024 2:47 PM BUTADIENE CONVERTER HELPER Pulse 87 07/06/2024 2:47 PM BUTADIENE CONVERTER HELPER Temperature 36.4 C (97.6 F) 09/08/2023 12:54 PM BUTADIENE CONVERTER HELPER Respiratory Rate 16 09/08/2023 12:54 PM BUTADIENE CONVERTER HELPER Oxygen Saturation 98% 09/08/2023 12:54 PM BUTADIENE CONVERTER HELPER Inhaled Oxygen Concentration - - Weight 65.8 kg (145 lb) 07/06/2024 2:47 PM BUTADIENE CONVERTER HELPER Height 182.9 cm (6') 07/06/2024 2:47 PM BUTADIENE CONVERTER HELPER Body Mass Index 19.67 07/06/2024 2:47 PM BUTADIENE CONVERTER HELPER Plan of Treatment Health Maintenance Due Date Last Done Comments Fall Risk Assessment 1960 Hepatitis C Screening 1960 Prostate Cancer Screening-PSA 1960 Pneumococcal vaccine 65+ (1 of 1 - PCV) 2009 Zoster Vaccine (1 of 2) 2009 Depression Screening 10/02/2022 10/02/2021 Abdominal Aortic Aneurysm (A AA) Screen 2024 10/19/2019, 01/28/2017 Well Visit 65+ 2024 Covid-19 Vaccine (3 - 2024-2 6 season) 2025 08/30/2020, 08/13/2020 Influenza Vaccine (#1) 2025 4, 07/02/2023, 08/03/2022, Additional history exists Colon Cancer Screening-Colonoscopy 11/16/2026 11/16/2016 DTaP/Tdap/Td Vaccine (2 - Td or Tdap) 01/19/2034 01/20/2024 Colon Cancer Screening-CT Colonography Discontinued 11/16/2016 Colon Cancer Screening-DNA Stool Discontinued 11/17/19 17 Colon Cancer Screening-FIT Discontinued 11/16/2016 Colon Cancer Screening-Sigmoidoscopy Discontinued 11/16/2016 Hepatitis B Screening Completed 03/07/2025, 025 Procedures Procedure Name Priority Date/Time Associated Diagnosis Comments HEPATITIS B SURFACE ANTIBODY (IMMUNE STATUS) Routine 01/24/2025 12:03 PM CDT General medical exam MEASLES IGG ANTIBODY Routine 01/24/2025 12:03 PM CDT General medical exam MUMPS IGG ANTIBODY Routine 01/24/2025 12 :03 PM CDT General medical exam RUBELLA IGG Routine 01/24/2025 12:03 PM CDT General medical exam VARICELLA ZOSTER ANTIBODY, IGG Routine 01/24/2025 12:03 PM CDT General medical exam CT ABDOMEN PELVIS W CONTRAST Schedule Routine, Read Routine (OP Routine) 10/19/2019 11:04 AM BUTADIENE CONVERTER HELPER Chronic abdominal pain COLONOSCOPY REPORT 11/16/2016 from Last 3 Months or Most Recently Relevant to Health Maintenance Results * Measles IgG antibody Blood (01/24/2025 12:03 PM CDT) Measles IgG Reactive Comment:Reactive: Results guerra ggest response to immunization or prior exposure to the virus. Blood 01/24/2025 12:0 3 PM CDT 01/24/2025 12:56 PM CDT Narrative [facility] - 01/24/2025 2:30 PM CDT Select client to bill, if appropriate.->[facility] SERVICES - MEDICAL Raghavendra Schwartz MD LAB MICROBIOLOGY - GE NERAL ORDERABLES Final Result [facility] [place] [address] * Rubella IgG antibody Blood (01/24/2025 12:03 PM CDT) Pathologist [facility] Rubella IgG Reactive Comment:Reactive: Results guerra ggest response to immunization or prior exposure to the virus. Blood 01/24/2025 12:0 3 PM CDT 01/24/2025 12:56 PM CDT Narrative [facility] - 01/24/2025 2:30 PM CDT Select client to bill, if appropriate.->[facility] Raghavendra Schwartz MD LAB MICROBIOLOGY - GE NERAL ORDERABLES Final Result Performing Organization Address [facility] Co de Phone Number [facility] [place] [address] * Hepatitis B surface antibody (immune status) Blood (01/24/2025 12:03 PM CDT) Pathologist [facility] HBsAb (immune status) Nonreactive Comment:This result is consi stent with a lack of immunity to Hepatitis B Virus when used in the setting of routine screening. Current interpretative data was last revised on 22 Blood 01/24/2025 12:0 3 PM CDT 01/24/2025 12:56 PM CDT Narrative [facility] - 01/24/2025 1:45 PM CDT Select client to bill, if appropriate.->[facility] Raghavendra Schwartz MD LAB MICROBIOLOGY - GE NERAL ORDERABLES Final Result Performing Organization Address City/[facility]/ZIP Co de Phone Number [place] [address] * Varicella Zoster IgG antibody Blood (01/24/2025 12:03 PM CDT) VZV IgG Reactive Reactive Comment:Reactive: Results guerra ggest response to immunization or prior exposure to the virus. Blood 01/24/2025 12:0 3 PM CDT 01/24/2025 12:56 PM CDT Narrative [facility] - 01/24/2025 2:30 PM CDT Select client to bill, if appropriate.->[facility] [employer] - MEDICAL Raghavendra Schwartz MD LAB MICROBIOLOGY - GE NERAL ORDERABLES Final Result Performing Organization Address [facility] [place] [address] * Mumps IgG antibody Blood (01/24/2025 12:03 PM CDT) Mumps IgG Reactive Comment:Reactive: Results guerra ggest response to immunization or prior exposure to the virus Blood 01/24/2025 12:0 3 PM CDT 01/24/2025 12:56 PM CDT Narrative [facility] - 01/24/2025 2:30 PM CDT Select client to bill, if appropriate.->[facility] - MEDICAL Raghavendra Schwartz MD LAB MICROBIOLOGY - GE NERAL ORDERABLES Final Result Performing Organization Address City/[facility]/[place] [address] * CT Abd/Pelvis with contrast (10/19/2019 11:04 AM BUTADIENE CONVERTER HELPER) Anatomical Region Laterality Modality Body N/A Computed Tomogra phy 10/19/2019 12:0 7 PM BUTADIENE CONVERTER HELPER Impressions 10/19/2019 12:07 PM BUTADIENE CONVERTER HELPER 1. No CT abnormality to explain the patient's symptoms. 2. Colonic diverticulosis without diverticulitis. The radiology attending physician has personally reviewed this study, and had reviewed and/or edited this written report and agrees with it. Electronically signed by: Mark Le D.O. Narrative 10/19/2019 12:07 PM BUTADIENE CONVERTER HELPER EXAMINATION: Computed tomography of the abdomen and pelvis with intravenous contrast HISTORY: Persistent abdominal pain; extensive preceding workup has been negative so far for an etiology TECHNIQUE: Transaxial computed tomographic images of the abdomen and pelvis were obtained with intravenous contrast according to the standard protocol after the uneventful administration of 100 mL Opti-Ray 350 intravenous contrast. COMPARISON: 01/28/2017 FINDINGS: Visualized lung bases clear. A prominent hypoattenuating peripheral enhancing lesion in hepatic segment 6 measures up to 9 mm in likely represents hemangioma. No suspicious intrahepatic mass or biliary ductal dilation. Gallbladder, adrenals, pancreas, and spleen are normal. Kidneys enhance symmetrically and are without obstructing stone or hydronephrosis. Urinary bladder mildly thick walled, but unchanged from before. No bowel obstruction. Extensive colonic diverticulosis without associated inflammation. Appendix normal. It has a midline course towards the umbilicus. 2nd portion duodenal diverticulum noted. Stomach is under distended. No exophytic mass. No free fluid or free air. No abdominal or pelvic lymphadenopathy. Abdominal aorta normal caliber but atherosclerotic. No evidence of severe stenosis at the origin of the mesenteric arteries. No suspicious osseous lesion. Mild retrolisthesis of L3 on L4 and L2 on L3. Procedure Note Mark Le, DO - 10/19/2019 EXAMINATION: Computed tomography of the abdomen and pelvis with intravenous contrast HISTORY: Persistent abdominal pain; extensive preceding workup has been negative so far for an etiology TECHNIQUE: Transaxial computed tomographic images of the abdomen and pelvis were obtained with intravenous contrast according to the standard protocol after the uneventful administration of 100 mL Opti-Ray 350 intravenous contrast. COMPARISON: 01/28/2017 FINDINGS: Visualized lung bases clear. A prominent hypoattenuating peripheral enhancing lesion in hepatic segment 6 measures up to 9 mm in likely represents hemangioma. No suspicious intrahepatic mass or biliary ductal dilation. Gallbladder, adrenals, pancreas, and spleen are normal. Kidneys enhance symmetrically and are without obstructing stone or hydronephrosis. Urinary bladder mildly thick walled, but unchanged from before. No bowel obstruction. Extensive colonic diverticulosis without associated inflammation. Appendix normal. It has a midline course towards the umbilicus. 2nd portion duodenal diverticulum noted. Stomach is under distended. No exophytic mass. No free fluid or free air. No abdominal or pelvic lymphadenopathy. Abdominal aorta normal caliber but atherosclerotic. No evidence of severe stenosis at the origin of the mesenteric arteries. No suspicious osseous lesion. Mild retrolisthesis of L3 on L4 and L2 on L3. IMPRESSION: 1. No CT abnormality to explain the patient's symptoms. 2. Colonic diverticulosis without diverticulitis. The radiology attending physician has personally reviewed this study, and had reviewed and/or edited this written report and agrees with it. Electronically signed by: Mark Le D.O. Shasta Dumont MD IMG CT PROCEDURES Final Result * COLONOSCOPY REPORT (11/16/2016) Anatomical Region Laterality Modality Other Narrative 11/16/2016 Ordered by an unspecified provider. [facility] Provider GI PROCEDURE ORDERABLES F inal Result from Last 3 Months or Most Recently Relevant to Health Maintenance Insurance [facility] [employer] [facility] CHO[employer] PLUS [employer] [employer] Care Teams Mergers And Acquisitions Attorney Relationship Specialty Start Date End Date Mian Perez MD [address] [facility] [place] [place] [address] PCP - General 10/17/19
--- OUTSIDE RECORDS SUMMARY | 2025-04-25 09:09 | XMS_ITS | Encounter Summary ---
Author Organization [facility] Address [address] [place] [address] Phone Care Team Providers Care Information Technology Professor Name Role Phone Mian Perez MD Primary Care Provider Encounter Details Date Type Department Care Team (Late st Contact Info) Description 01/08/2024 Documentation [facility] Medicine Neuro Muscle [address] [facility] Advanced Medicine 6th [place] [address] [place] [id number] Ai Calles MD [address] [facility] [address] [place] [address] Social History Tobacco Use Types Packs/Day Years Used Date Smoking Tobacco: Former Smokeless Tobacco: Never OASIS D0700: Social Isolation Answer Da te [...] on file Legal Sex Male 12:42 AM 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 Gender Identity Not on file Sexual Orientation Not on file 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
--- OUTSIDE RECORDS SUMMARY | 2025-04-25 09:09 | XMS_ITS | Clinical Summary ---
Author Organization [facility] Address [address] [place] [address] Phone Care Team Providers Care Metal Milling Machine Operator Name Role Phone Mian Perez Primary Care Provider [phone] Social History Tobacco Use Types Packs/Day Years Used Date Smoking Tobacco: Never Assessed Sex and Gender Information Value Date Recorded Sex Assigned at Not on file Legal Sex Male 4:48 PM CDT Gender Identity Not on file Sexual Orientation Not on file Plan of Treatment Health Maintenance Due Date Last Done Comments Hepatitis C Virus (HCV) Screening 1960 TdaP Immunization 1960 Cologuard 2004 Colonoscopy 2004 Colorectal Cancer Screening 2004 Immunochemical Fecal Occult Blood 2004 Pneumococcal Immunization (5 0+ years) (1 of 1 - PCV) 2009 Zoster Immunization (1 of 2) 2009 Influenza Immunization (#1) 2025 11/0 01/2020, 05/23/2018 SARS-COV-2 Immunization ( - season) 2025 Respiratory Syncytial Virus (RSV) Immunization (Adult) (1 - 1-dose 75+ series) 2034 Hepatitis B Immunization Aged Out No longer eligible based on patient's age to complete this topic Human Papillomavirus (HPV) Immunization Aged Out No longer eligible b ased on patient's age to complete this topic Meningococcal Immunization (ACWY) Aged Out No longer eligible b ased on patient's age to complete this topic Rotavirus Immunization Aged Out No lo nger eligible based on patient's age to complete this topic Care Teams Metal Milling Machine Operator Relationship Specialty Start Date End Date Chris Mian [address] [place] [address] PCP - General Family Medicine 01/24/21
--- OUTSIDE RECORDS SUMMARY | 2025-04-25 09:09 | XMS_ITS | Clinical Summary ---
Author Organization [facility] Address [address] [place] [address] Phone Care Team Providers Care Historiography Professor Name Role Phone Mian Perez MD Primary Care Provider [phone] Allergies Active Allergy Reactions Criticality Noted Date Comments Penicillins 07/30/2020 Medications PARoxetine (PAXIL) 40 MG tablet Take 40 mg by mouth 1 (one) time each day Active diazePAM (VALIUM) 5 MG tablet Take 5 mg by mouth 2 (two) times a day if needed for anxiety Active Active Problems Problem Noted Date Diagnosed Date Frequency of micturition 07/30/2020 Hyponatremia 07/30/2020 Family History Medical History Relation Comments Heart disease Father Relation Status Comments Father Social History Tobacco Use Types Packs/Day Years Used Date Smoking Tobacco: Never Smokeless Tobacco: Never Alcohol Use Standard Drinks/Week Comments Yes 0 (1 standard drink = 0.6 oz pur e alcohol) 1 drink daily Sex and Gender Information Value Date Recorded Sex Assigned at Not on file Legal Sex Male 3:23 PM MDT Gender Identity Not on file Sexual Orientation Not on file Last Filed Vital Signs Vital Sign Reading Time Taken Comments Blood Pressure - - Pulse - - Temperature - - Respiratory Rate - - Oxygen Saturation - - Inhaled Oxygen Concentration - - Weight 72.6 kg (160 lb) 09/03/2020 2:00 PM BOARDING HOUSE 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
== END 2025-04-25 08:46 | disposition home or self-care (01) ==
PROVIDERS: PCP Emergency Medicine; Visit Provider Emergency Medicine
DX: R01.1 Cardiac murmur, unspecified (principal); I34.0 Nonrheumatic mitral (valve) insufficiency; I35.1 Nonrheumatic aortic (valve) insufficiency
CPT/HCPCS: 93306